=== PATIENT | male | born 1945 | race Caucasian/White ===

== ENCOUNTER → 2017-11-21 09:59 | Outpatient (REF) | payer MEDICARE, OTHER, SELFPAY ==
[2017-11-21 13:54] LABS: Anion Gap 13.8 mEq/L (5-15); Blood Urea Nitrogen 19 mg/dL (7-18); Carbon Dioxide 28 mmol/L (21.0-32.0); Chloride 107 mmol/L (98-107); Creatinine,Serum 1.08 mg/dL (0.70-1.30); Estimated Glomerular Filt Rate 68 ml/min (>60); GFR (African American) 82 ML/MIN (>60); Potassium 4.8 mmoL/L (3.5-5.1); Sodium 144 mmol/L (136-145)
[2017-11-21 14:29] LABS: Glucose 96 mg/dL (74-106)
== END ==
LOC: LAB 09:59
PROVIDERS: Visit Provider Emergency Medicine
DX: I10 Essential (primary) hypertension (principal)
CPT/HCPCS: 80048

== ENCOUNTER → 2020-11-27 09:07 | Outpatient (CLI) | payer MEDICARE, OTHER, SELFPAY | PROVIDERS: Visit Provider Internal Medicine Gastroenterology | DX: Z01.812 Encounter for preprocedural laboratory examination (principal); Z20.822 Contact with and (suspected) exposure to COVID-19; Z12.11 Encounter for screening for malignant neoplasm of colon | CPT/HCPCS: U0003 ==

== ENCOUNTER 2020-11-30 09:30 | Day surgery (SDC) | payer MEDICARE, OTHER, SELFPAY ==
[2020-11-25 12:35] VITALS: BMI 25.0
[2020-11-30 09:49] VITALS: BP 130/67; PULSE 56; RESP 18; TEMP 36.7; O2SAT 98
[2020-11-30 10:35] VITALS: O2SAT 97
--- NOTE | 2020-11-30 10:40 | P.PN_ITS ---
[facility] Anesthesia Checklist - Patient Identification Patient Identification: Arm Band - Structural Data Admitted From: Home Planned Operative Procedure/s: colonoscopy Consent for Planned Operative Procedure(s) Verified: Yes Verified Documents: Surgical Consent, History and Physical - NPO Status Verified Time NPO: 00:00 - Additional verifications Anesthesia Reactions: No - Airway Assessment C-Spine Mobility Assessed: Yes (mp2) TMJ Mobility Assessed: Yes Dentition: Good Dentition - Neurological Assessment Level of Consciousness: Awake, Alert - Anesthesia Plan Anesthesia Risk discussed: Yes Anesthesia Plan: Verified ASA Class: II Anesthesia Type: MAC [facility] History I have reviewed the patient's past medical history: Yes Medical History: Reports:: Hypertension, Kidney Stones Denies:: Cancer, Diabetes Mellitus Type 1, Diabetes Mellitus Type 2, MRSA, Seizures *Have you ever received a pneumonia vaccine?: No *Have you received a flu vaccine this season?: No Anesthesia experience/problems:: nac Other Surgeries: Yes: Appendectomy, Hernia Repair (x 3), Splenectomy Amputation: No Fractures: No - *Social History Last grade of school completed: High school graduate Smoking Status: Never smoker Alcohol Intake: current Alcohol Intake Frequency:: 0-2 drinks per day Substance Use Type: denies use *Occupational Status:: employed *Travel in the last 8 weeks: None Family Hx:: Heart Attack, Cancer, Hypertension
--- NOTE | 2020-11-30 11:03 | HMH.PROC ---
[facility] Procedure Note Procedure Note:: Colonoscopy Procedure Report: Colonoscopy with cold snare polypectomy Endoscopist: Andres Burgess II, MD Referring physician: Jamal Bond MD Date of Procedure: November 30, 2020 Equipment: Olympus 190 variable stiffness pediatric colonoscope Sedation: MAC sedation Indication: Mr. Barron is a 75-year-old gentleman who is here for follow-up screening/surveillance colonoscopy secondary to a personal history of adenomatous colon polyps. The patient also has had intermittent recurrent uncomplicated diverticulitis and his last episode was in May 2020. He did receive Cipro and Flagyl for 10 days which helped to resolve this. He does state that his maternal uncle had colon cancer at the age of 72. He does get some bowel urgency and frequency. He reports no rectal bleeding, weight loss or present abdominal pain. Procedure: Prior to the procedure, a history and physical exam was performed, and patient's medications and allergies were reviewed. The risks, benefits and alternatives of the sedation and procedure were discussed with the patient. All questions were answered and informed consent was obtained. The patient was brought to the procedure room. Patient identification and proposed procedure were verified by the physician and the nurse. The patient was placed in a left lateral decubitus position and the scope was passed under direct vision. Throughout the procedure, the patient's blood pressure, pulse, and oxygen saturations were monitored continuously. The colonoscopy was accomplished without difficulty. The patient tolerated the procedure well. Findings: On digital rectal examination there was normal rectal tone. There were no external hemorrhoids. The prostate was 2-3+, mild to moderately firm but symmetric without nodules. The colonoscope was introduced through the anal canal to the rectum and advanced to the cecum. The ileocecal valve and appendiceal orifice were identified. The scope was advanced a short distance into the ileum which appeared grossly normal. The scope was then withdrawn into the colon. There were 6 colon polyps (transverse x3 (3, 4 and 4 mm), descending x2 (4 and 6 mm) and sigmoid x1 (5 mm)) which were all removed via cold snare polypectomy. There were scattered extensive diverticuli throughout the colon. This was more predominant in the descending and sigmoid colon (LEFT colon) with some evidence of chronic sigmoid diverticulitis.. The rectum itself was normal. Upon retroflexion within the rectum there were grade 1-2 internal hemorrhoids. The preparation was excellent throughout with [place] Preparation Score of 9. The cecal time was 14 minutes. Impression: 1. Colonic polyps x6 2. Extensive pandiverticulosis with evidence of mild chronic sigmoid diverticulitis 3. Grade 1-2 internal hemorrhoids Plan: I will follow up the polyp pathology and recommend repeat colonoscopy again in 3 years based upon the polyp histology. I would encourage dietary measures and bulking fiber supplementation on a long-term daily maintenance basis.
[2020-11-30 11:05] VITALS: BP 114/65; PULSE 50; RESP 12; TEMP 36.4; O2SAT 96
[2020-11-30 11:15] VITALS: BP 115/68; PULSE 50; RESP 12; O2SAT 95
[2020-11-30 11:25] VITALS: BP 127/76; PULSE 48; RESP 16; O2SAT 97
[2020-11-30 11:35] VITALS: BP 134/65; PULSE 50; RESP 16; TEMP 36.4; O2SAT 98
--- NOTE | 2020-11-30 12:11 | PC.NURSE ---
PSA drawn per lab
[2020-11-30 13:30] LABS: Prostate Specific Ag, Diagnost 6.03 ng/ml (0.0-4.0)
== END 2020-11-30 11:35 | disposition home or self-care (01) ==
LOC: OUTP 09:33
PROVIDERS: PCP Emergency Medicine; Visit Provider Internal Medicine Gastroenterology
PROC: 0DJD8ZZ Inspection of Lower Intestinal Tract, Via Natural or Artificial Opening Endoscopic (ICD-10-PCS; CPT 45378; principal; 2020-11-30 10:30)
DX: Z12.11 Encounter for screening for malignant neoplasm of colon (principal); K64.0 First degree hemorrhoids; K63.5 Polyp of colon; K57.32 Diverticulitis of large intestine without perforation or abscess without bleeding; K57.30 Diverticulosis of large intestine without perforation or abscess without bleeding; Z86.010 Personal history of colon polyps; I10 Essential (primary) hypertension; Z87.442 Personal history of urinary calculi; Z90.49 Acquired absence of other specified parts of digestive tract; Z90.81 Acquired absence of spleen; Z80.9 Family history of malignant neoplasm, unspecified; Z82.49 Family history of ischemic heart disease and other diseases of the circulatory system
CPT/HCPCS: 45385; 84153; 88305

== ENCOUNTER → 2021-10-27 11:39 | Outpatient (CLI) | payer MEDICARE, OTHER, SELFPAY ==
[2021-10-27 18:00] LABS: Basophils # 0.1 K/mm3 (0-0.2); Basophils % 1.1 % (0.1-2.0); Eosinophils # 0.2 K/mm3 (0.0-0.4); Eosinophils % 3.5 % (0.1-12.0); Hematocrit 41.5 % (42.0-52.0); Hemoglobin 13.2 g/dL (14.1-18.0); Lymphocytes # 2.3 K/mm3 (0.7-4.5); Lymphocytes % 36.5 % (10-50); Mean Corpuscular HGB Conc 31.9 g/dL (31.8-35.4); Mean Corpuscular Volume 94.1 fl (80-94); Mean Platelet Volume 10.3 fl (7.4-10.4); Monocytes # 0.5 K/mm3 (0.1-1.0); Monocytes % 7.4 % (1.7-9.3); Neutrophils # 3.3 K/mm3 (1.8-7.8); Neutrophils % 51.6 % (37.0-80.0); Platelet Count 338 K/mm3 (142-424); Red Blood Count 4.41 M/mm3 (4.60-6.20); Red Cell Distribution Width 13.6 % (11.5-17.5); White Blood Count 6.3 K/mm3 (4.8-10.8)
[2021-10-27 18:08] LABS: Alanine Aminotransferase 18 U/L (12-78); Albumin/Globulin Ratio 1.4 (1.1-1.8); Alkaline Phosphatase 69 U/L (38-126); Anion Gap 10.5 mEq/L (5-15); Aspartate Amino Transferase 24 U/L (17-59); Bilirubin,Total 0.8 mg/dl (0.2-1.3); Blood Urea Nitrogen 22 mg/dl (9-20); Carbon Dioxide 22 mmol/L (22.0-30.0); Chloride 109 mmol/L (98-107); Chol/HDL Ratio 3.4 (1-3.5); Cholesterol 186 mg/dl (140-200); Estimated Glomerular Filt Rate 73 ml/min (>60); GFR (African American) 88 ML/MIN (>60); Globulin 2.9 g/dL (1.3-3.2); Glucose 93 mg/dl (74-100); HDL Cholesterol 55 mg/dl (40-60); Potassium 4.5 mmoL/L (3.5-5.1); Sodium 137 mmol/L (136-145); Total Protein,Serum 6.9 g/dl (6.3-8.2); Triglycerides 105 mg/dl (30-150); VLDL Cholesterol 21 mg/dL (0-40)
[2021-10-27 18:19] LABS: Direct LDL Cholesterol 94.11 mg/dL (100-129)
[2021-10-27 18:24] LABS: Free T4 (Free Thyroxine) 1.32 ng/dl (0.78-2.19)
[2021-10-27 18:25] LABS: 25-OH Vitamin D, Total 36.8 ng/mL (30-100)
[2021-10-27 18:39] LABS: Thyroid Stimulating Hormone 1.93 uIU/mL (0.465-4.68)
== END ==
PROVIDERS: PCP Emergency Medicine; Visit Provider Emergency Medicine
DX: I10 Essential (primary) hypertension (principal); K21.9 Gastro-esophageal reflux disease without esophagitis; E55.9 Vitamin D deficiency, unspecified
CPT/HCPCS: 80053; 80061; 82306; 84439; 84443; 85025

== ENCOUNTER → 2023-06-23 09:41 | Outpatient (CLI) | payer MEDICARE, OTHER, SELFPAY ==
[2023-06-23 19:08] LABS: Basophils # 0.1 K/mm3 (0-0.2); Basophils % 0.7 % (0.1-2.0); Eosinophils # 0.3 K/mm3 (0.0-0.4); Eosinophils % 4.2 % (0.1-12.0); Hematocrit 40.7 % (42.0-52.0); Hemoglobin 13.2 g/dL (14.1-18.0); Lymphocytes # 2.7 K/mm3 (0.7-4.5); Lymphocytes % 35.2 % (10-50); Mean Corpuscular HGB Conc 32.6 g/dL (31.8-35.4); Mean Corpuscular Hemoglobin 30.7 pg (27.0-31.2); Mean Corpuscular Volume 94.3 fl (80-94); Mean Platelet Volume 10.2 fl (7.4-10.4); Monocytes # 0.6 K/mm3 (0.1-1.0); Monocytes % 7.4 % (1.7-9.3); Neutrophils % 52.5 % (37.0-80.0); Platelet Count 367 K/mm3 (142-424); Red Blood Count 4.31 M/mm3 (4.60-6.20); White Blood Count 7.6 K/mm3 (4.8-10.8)
[2023-06-23 19:35] LABS: Alanine Aminotransferase 20 U/L (12-78); Albumin Level 4.3 g/dl (3.5-5.0); Albumin/Globulin Ratio 1.3 (1.1-1.8); Alkaline Phosphatase 74 U/L (38-126); Aspartate Amino Transferase 26 U/L (17-59); Bilirubin,Total 0.6 mg/dl (0.2-1.3); Blood Urea Nitrogen 24 mg/dl (9-20); Calcium 9.2 mg/dl (8.4-10.2); Carbon Dioxide 24 mmol/L (22.0-30.0); Chloride 105 mmol/L (98-107); Chol/HDL Ratio 6.3 (1-3.5); Cholesterol 207 mg/dl (140-200); Estimated Glomerular Filt Rate 54 ml/min (>60); GFR (African American) 65 ML/MIN (>60); Globulin 3.2 g/dL (1.3-3.2); Glucose 95 mg/dl (74-100); HDL Cholesterol 33 mg/dl (40-60); Sodium 137 mmol/L (136-145); Total Protein,Serum 7.5 g/dl (6.3-8.2); Triglycerides 116 mg/dl (30-150); VLDL Cholesterol 23 mg/dL (0-40)
[2023-06-23 19:52] LABS: 25-OH Vitamin D, Total 56.5 ng/mL (30-100)
[2023-06-23 20:04] LABS: Free T4 (Free Thyroxine) 1.42 ng/dl (0.78-2.19)
[2023-06-23 20:07] LABS: Prostate Specific Ag Screen 22.5 ng/ml (0.0-4.0); Thyroid Stimulating Hormone 2.67 uIU/mL (0.465-4.68)
[2023-06-23 20:22] LABS: Anion Gap 12.8 mEq/L (5-15); Potassium 4.8 mmoL/L (3.5-5.1)
[2023-06-23 20:37] LABS: Hemoglobin A1C 5.3 % (4.0-6.0)
== END ==
PROVIDERS: PCP Physician Assistant; Visit Provider Internal Medicine
DX: E55.9 Vitamin D deficiency, unspecified (principal); I10 Essential (primary) hypertension; E11.9 Type 2 diabetes mellitus without complications; Z12.5 Encounter for screening for malignant neoplasm of prostate
CPT/HCPCS: 80053; 80061; 82306; 83036; 84439; 84443; 85025; G0103

== ENCOUNTER 2023-08-14 14:10 | Outpatient (CLI) | payer MEDICARE, OTHER, SELFPAY ==
[2023-08-14 15:02] LABS: Blood Urea Nitrogen 22 mg/dl (9-20); Estimated Glomerular Filt Rate 65 ml/min (>60); GFR (African American) 79 ML/MIN (>60)
[2023-08-15 12:56] LABS: PSA, Free 3.23 ng/mL; Prostate Specific Ag 29.3 ng/mL (0.0-4.0)
== END 2023-08-14 23:59 ==
LOC: LAB 14:11
PROVIDERS: PCP Internal Medicine; Visit Provider Urology
DX: N40.0 Benign prostatic hyperplasia without lower urinary tract symptoms (principal)
CPT/HCPCS: 36415; 82565; 84153; 84154; 84520

== ENCOUNTER 2023-08-28 06:36 | Outpatient (CLI) | payer MEDICARE, OTHER, SELFPAY ==
[2023-08-28 13:27] LABS: Microscopic, Urine URINE MICROSCOPIC (MICROSCOPIC)
[2023-08-28 13:33] LABS: Appearance,Urine CLEAR (Clear); Bilirubin,Urine Negative (Negative); Blood, Urine Negative (Negative); Color,Urine YELLOW (Yellow); Glucose,Urine (UA) Negative (Negative); Ketones,Urine Negative (Negative); Leukocyte Esterase,Urine Negative (Negative); Nitrate,Urine Negative (Negative); PH,Urine 6.5 (5.0-8.5); Protein,Urine Negative (Negative); Specific Gravity, Urine 1.015 (1.005-1.030); Urobilinogen,Urine 0.2 EU/dl (0.2)
[2023-08-28 14:18] LABS: Bacteria,Urine Trace /lpf; Squamous Epithelial Cell,Urine Occasional #/hpf (0-5)
== END 2023-08-28 23:59 ==
LOC: LAB.DROPOF 08-30 06:37
PROVIDERS: PCP Urology; Visit Provider Urology
DX: N40.0 Benign prostatic hyperplasia without lower urinary tract symptoms (principal)
CPT/HCPCS: 81001

== ENCOUNTER 2025-03-27 11:00 | Outpatient (CLI) | payer MEDICARE, OTHER, SELFPAY ==
--- OUTSIDE RECORDS SUMMARY | 2024-05-08 05:10 | XMS_ITS | Encounter Summary ---
[facility] Address [address] [place] [address] Care Team Providers Care Geological Technical Officer Name Role Phone Janes Moreno MD Primary Care Provider [phone] Encounter Details Date Type Department Care Team (Late st Contact Info) Description 05/08/2024 5:10 AM EDT Hospital Encounter [facility] [address] [place] [address] Social History Tobacco Use Types Packs/Day Years Used Date Smoking Tobacco: Never Assessed PHQ-2 Answer Date Recorded Patient Health Questionnaire-2 Score 0 05/09/2024 Sex and Gender Information Value Date Recorded Sex Assigned at Not on file Legal Sex Male 10:14 AM EDT Gender Identity Not on file Sexual Orientation Not on file documented as of this encounter Functional Status documented as of this encounter Plan of Treatment Not on file documented as of this encounter Visit Diagnoses Not on filedocumented in this encounter Care Teams Geological Technical Officer Relationship Specialty Start Date End Date Janes Moreno MD [address] [facility] [address] [place] [address] PCP - General Internal Medicine 04/25/24 documented as of this encounter
--- OUTSIDE RECORDS SUMMARY | 2024-05-20 06:25 | XMS_ITS | Encounter Summary ---
[facility] [address] [place] [address] Care Team Providers Care Scooping Machine Tender Name Role Phone Janes Moreno MD Primary Care Provider [phone] Reason for Visit * Auth/Cert (Routine) Specialty Diagnoses / Procedures Referred By Contac t Referred To Contact Referral ID Status Reason Start Date Expiration Date Visits Re quested Visits Authorized [id number] 1 1 Encounter Details Date Type Department Care Team (Late st Contact Info) Description 05/20/2024 5:25 AM EST Hospital Encounter [facility] [address] [place] [address] Social History Tobacco Use Types Packs/Day Years Used Date Smoking Tobacco: Never Assessed PHQ-2 Answer Date Recorded Patient Health Questionnaire-2 Score 0 05/09/2024 Sex and Gender Information Value Date Recorded Sex Assigned at Not on file Legal Sex Male 10:14 AM EDT Gender Identity Not on file Sexual Orientation Not on file documented as of this encounter Plan of Treatment Not on file documented as of this encounter Visit Diagnoses Not on filedocumented in this encounter Care Teams Scooping Machine Tender Relationship Specialty Start Date End Date Janes Moreno MD [address] [facility] [address] [place] [address] PCP - General Internal Medicine 04/25/24 documented as of this encounter
--- OUTSIDE RECORDS SUMMARY | 2024-06-17 07:30 | XMS_ITS | Encounter Summary ---
[facility] [address] [place] [address] Care Team Providers Care Laboratory Sample Carrier Name Role Phone Janes Moreno MD Primary Care Provider [phone] Encounter Details Date Type Department Care Team (Late st Contact Info) Description 06/17/2024 6:30 AM [facility] Hospital [facility] [address] [place] [address] Social History Tobacco Use Types Packs/Day Years [...] on filedocumented in this encounter Care Teams Laboratory Sample Carrier Relationship Specialty Start Date End Date Janes Moreno MD [address] [facility] [address] [place] [address] PCP - General Internal Medicine 04/25/24 documented as of this encounter
--- OUTSIDE RECORDS SUMMARY | 2024-08-06 06:15 | XMS_ITS | Encounter Summary ---
[facility] [address] [place] [address] Care Team Providers Care Tree Shear Operator Name Role Phone Janes Moreno MD Primary Care Provider [phone] Encounter Details Date Type Department Care Team (Late st Contact Info) Description 08/06/2024 5:15 AM [facility] Hospital Encounter [facility] [address] [place] [address] Social History Tobacco Use Types Packs/Day Years [...] on filedocumented in this encounter Care Teams Tree Shear Operator Relationship Specialty Start Date End Date Janes Moreno MD [address] [facility] [address] [place] [address] PCP - General Internal Medicine 04/25/24 documented as of this encounter
--- OUTSIDE RECORDS SUMMARY | 2025-02-05 05:30 | XMS_ITS | Encounter Summary ---
[facility] [address] [place] [address] Care Team Providers Care Gas Systems Worker Name Role Phone Janes Moreno MD Primary Care Provider [phone] Encounter Details Date Type Department Care Team (Late st Contact Info) Description 02/05/2025 5:30 AM EDT Hospital Encounter [facility] [address] [place] [address] Social History Tobacco Use Types Packs/Day Years [...] on filedocumented in this encounter Care Teams Gas Systems Worker Relationship Specialty Start Date End Date Janes Moreno MD [address] [facility] [address] [place] [address] PCP - General Internal Medicine 04/25/24 documented as of this encounter
--- OUTSIDE RECORDS SUMMARY | 2025-03-28 10:28 | XMS_ITS | Clinical Summary ---
Author Organization [facility] Address [address] [place] [address] Care Team Providers Care Supervisor Engraving Name Role Phone Tian Guerrero DO Primary Care Provider [phone] Social History Tobacco Use Types Packs/Day Years Used Date Smoking Tobacco: Never Assessed Sex and Gender Information Value Date Recorded Sex Assigned at Not on file Legal Sex Male 1:21 PM EST Gender Identity Not on file Sexual Orientation Not on file Last Filed Vital Signs Vital Sign Reading Time Taken Comments Blood Pressure - - Pulse - - Temperature - - Respiratory Rate - - Oxygen Saturation - - Inhaled Oxygen Concentration - - Weight 84.7 kg (186 lb 11.7 oz) 024 10:47 AM EDT Height 175.3 cm (5' 9 ) 01/19/2024 10:4 7 AM EDT Body Mass Index 27.58 01/19/2024 10:47 AM EDT Plan of Treatment Health Maintenance Due Date Last Done Comments [facility]-Depression Screening 1945 [facility]-Hepatitis C Screening 1945 [facility]-Medicare Annual Wellness (AWV) 1945 [facility]-/Child/Adol SDOH Screenings 1945 [facility]-Obesity Intervention 1953 [facility]- SDOH Screenings 1965 [facility]-Adult SDOH Screenings 1965 [facility]-Pneumococcal Vaccine: 50+ Years (1 of 1 - PCV) 1997 [facility]-Zoster Vaccines (1 of 2) 1997 [facility]-DTaP,Tdap,and Td Vaccines (1 - Tdap) 06/03/2011 06/02/2011, 07/17/2000 [facility]-RSV Vaccine: 60+ Years or (1 - 1-dose 75+ series) 2022 [id number] Vaccine (2023- season) 2024 08/08/2023, 03/30/2022, 11/09/2021, Additional history exists [facility]-Influenza Vaccine (#1) 2025 [facility]-Hepatitis A Vaccines Aged Out 07/06/2018 No longer eligible based on patient's age to complete this topic HPV Vaccines Aged Out No longer eligi ble based on patient's age to complete this topic [facility]-HIB Vaccines Aged Out No longer e ligible based on patient's age to complete this topic [facility]-IPV Vaccines Aged Out No longer e ligible based on patient's age to complete this topic [facility]-Rotavirus Vaccines Aged Out No lo nger eligible based on patient's age to complete this topic Insurance [facility] MEDICARE [facility] MEDICARE SUPPLEMENT Member Subscriber Plan / Payer (Ef fective 2023-Present) Name:Danial Barron Relation to Subscriber:Self Name:Danial Barron Payer ID:Not on file Group ID:Not on file Type:Not on file Address: [facility] [id number] [address] MEDICARE ADVANTAGE on file Care Teams Supervisor Engraving Relationship Specialty Start Date End Date Tian Guerrero DO [address] [place] [address] [place] [address] PCP - General 10/26/23
--- OUTSIDE RECORDS SUMMARY | 2025-03-28 10:28 | XMS_ITS ---
Author Organization [facility] Address [address] [place] [address] Care Team Providers Care Shactor Name Role Phone Janes Moreno MD Primary Care Provider [phone] Active Problems Problem Noted Date Diagnosed Date Prostate cancer Cancer Staging:Clinical stage from 03/14/2024:Stage IIIC(cT3a, cN0, cM0, PSA: 29.3, Grade Group: 5) - Signed by John Perez MD on 05/09/2024 Current Treatment and Therapy Plans No current plan information found. Past Treatment and Therapy Plans No past plan information found. Radiation Treatments (No Episode) * Course 1 06/03/2024 - 07/12/2024 Treatment Period Energy Fraction Dose Fractions Total Dose Plans Planned Pros SIB VM 06/03/2024 - 07/12/2024 2.5 28 / 28 7,000 Reference Points Delivered PTV 5040 06/03/2024 - 07/12/2024 50.4 Pros SIB VM 06/03/2024 - 07/12/2024 70
--- OUTSIDE RECORDS SUMMARY | 2025-03-28 10:28 | XMS_ITS | Clinical Summary ---
Author Organization [facility] Address [address] [place] [address] Care Team Providers Care Forming Machine Upkeep Mechanic Helper Name Role Phone Janes Moreno MD Primary Care Provider [phone] Allergies Active Allergy Reactions Criticality Noted Date Comments Contrast Dye (Echo Or Unknow n Ct/Mr) Other (See Comments) 02/12/2008 Ivabradine Shortness Of Breath High 05/09/2024 Morphine Itching,Anaphylaxis High 02/12/2008 Promethazine Shortness Of Breath High 02/12/2008 Medications omeprazole (prilOSEC) 10 MG capsule Take 2 capsules every day by oral route. Active potassium citrate (UROCIT-K) 10 MEQ (1080 MG) CR tablet Take 1 tablet by mouth 2 (Two) Times a Day. Active telmisartan (MICARDIS) 80 MG tablet Take 1 tablet by mouth Daily. Active tamsulosin (FLOMAX) 0.4 MG capsule 24 hr capsule Take 1 capsule by mouth Every Night. 30 capsule 12 06/10/2024 Active Active Problems Problem Noted Date Diagnosed Date Prostate cancer Cancer Staging:Clinical stage from 03/14/2024:Stage IIIC(cT3a, cN0, cM0, PSA: 29.3, Grade Group: 5) - Signed by John Perez MD on 05/09/2024 Encounters Date Type Department Care Team Description 02/05/2025 5:30 AM EDT Hospital Encounter [facility] [place] [address] [facility] [address] [place] [address] 02/05/2025 Travel from Last 3 Months Family History Medical History Relation Name Comments Hodgkin's lymphoma Brother Stroke Father Colon cancer Maternal Uncle bladder cancer Mother Relation Name Status Comments Brother Father Maternal Uncle Mother Social History Tobacco Use Types Packs/Day Years [...] Sign Reading Time Taken Comments Blood Pressure 147/80 05/09/2024 12:50 PM EDT Pulse 60 05/09/2024 12:50 PM EDT Temperature - - Respiratory Rate 20 05/09/2024 12:50 PM EDT Oxygen Saturation 97% 05/09/2024 12:50 PM EDT Inhaled Oxygen Concentration - - Weight 90.3 kg (199 lb) 07/11/2024 11:00 AM EST Height 185.4 cm (6' 1 ) 05/09/2024 12:50 PM EDT Body Mass Index 26.25 05/09/2024 12:50 PM EDT Plan of Treatment Health Maintenance Due Date Last Done Comments Pneumococcal Vaccine 50+ (1 of 2 - PCV) 1966 ZOSTER VACCINE (1 of 2) 1966 TDAP/TD VACCINES (1 - Tdap) 06/03/2011 06/02/2011 RSV Vaccine - Adults (1 - 1- dose 75+ series) 2022 ANNUAL WELLNESS VISIT 05/09/2024 HEPATITIS C SCREENING 05/09/2024 COVID-19 Vaccine (6 - Modern a risk season) 2025 03/26/2024, 08/08/2023, 03/30/2022, Additional history exists INFLUENZA VACCINE 04/16/2025 Insurance MEDICARE A & B Member Subscriber Plan / Payer (Ef fective 2012-Present) Name:Danial Barron Member ID:[id number] Relation to Subscriber:Self Name:Danial Barron Subscriber ID:[id number] Payer ID:[id number] Group ID:Not on file Type:Not on file Address: [facility] [id number] [place] [id number] [facility] Care Teams Forming Machine Upkeep Mechanic Helper Relationship Specialty Start Date End Date Janes Moreno MD [address] [facility] [address] [facility] [place] [address] PCP - General Internal Medicine 04/25/24
--- OUTSIDE RECORDS SUMMARY | 2025-03-28 10:29 | XMS_ITS | Encounter Summary ---
Author Organization [facility] Address [address] [place] [address] Care Team Providers Care Casino Operations Supervisor Name Role Phone Janes Moreno MD Primary Care Provider [phone] Encounter Details Date Type Department Care Team (Latest Contact Info) Description 02/05/2025 Travel Social History Tobacco Use Types Packs/Day Years [...] on filedocumented in this encounter Care Teams Casino Operations Supervisor Relationship Specialty Start Date End Date Janes Moreno MD [address] [facility] [address] [place] [address] PCP - General Internal Medicine 04/25/24 documented as of this encounter
== END 2025-03-27 23:59 | disposition home or self-care (01) ==
LOC: LAB.DROPOF 03-28 10:27
PROVIDERS: PCP Internal Medicine; Visit Provider Internal Medicine
DX: B34.9 Viral infection, unspecified (principal)
CPT/HCPCS: 87635